=== PATIENT | male | born 1965 | race Asian ===

== ENCOUNTER 2025-01-13 15:01 | Observation (INO) ==
[2025-01-13 15:49] LABS: Hematocrit (blood only) 48.8 % (42.0-52.0); Hemoglobin 16.4 g/dl (14.0-18.0); Immature Granulocytes # (auto) 0.01 K/uL (0.01-0.20); Immature Granulocytes % (auto) 0.2 %; Mean Corpuscular Hemoglobin 29.2 pg (25.0-34.0); Mean Corpuscular Volume 87.0 fL (80.0-100.0); Platelet Count 204 K/uL (130-400); RDW Standard Deviation 39.2 fL (36.4-46.3); Red Blood Count 5.61 M/uL (4.70-6.10); White Blood Count 4.61 K/ul (4.8-10.8)
[2025-01-13 16:35] LABS: Alanine Aminotransferase 26 U/L (7-52); Albumin Globulin Ratio 1.1 (0.9-2); Albumin Level 4.1 gm/dl (3.4-5.0); Alkaline Phosphatase 68 U/L (34-104); Anion Gap 4 (3-11); Bilirubin,Total 0.3 mg/dl (0.2-1.0); Blood Urea Nitrogen 15 mg/dl (6-23); Calcium 8.7 mg/dl (8.6-10.3); Carbon Dioxide 27 mmol/L (21-32); Chloride 103 mmol/L (98-107); Globulin 3.7 gm/dl (2.5-4.0); Glucose 112 mg/dl (70-99(Fasting)); Sodium 134 mmol/L (136-145); Total Protein 7.8 gm/dl (6.0-8.3)
--- NOTE | 2025-01-13 17:26 | Emergency Department Note ---
History of Present Illness General Chief complaint: Skin Problem Stated complaint: ABCESS ON RT ARM, CHECK FOR CLOTS ALL OVER Time Seen by Provider: 01/13/25 17:19 History of Present Illness This is a 59-year-old male that presents to the emergency department accompanied by 2 officers with complaints of "abscess on right arm, infection". Patient notes that 9 days ago following eating some chili he felt some oozing, heat sensation and itchiness to much of the body. He then noted a small sore develop to the right elbow that has progressed since that time now to multiple areas of the body. He denies any history of similar. He has been taking Zyrtec daily. No known drug allergies other than fish containing products. Home Medications Medication Instructions Recorded Confirmed Type cetirizine 10 mg tablet (Zyrtec) 10 mg PO DAILY 01/13/25 01/13/25 History silver sulfadiazine 1 % topical 1 applic topical DAILY 01/13/25 01/13/25 History cream (Silvadene) Allergies Allergy/AdvReac Type Severity Reaction Status Date / Time Fish Containing Products Allergy Unknown ON Verified 01/13/25 18:16 [facility] Past Med/Surg History Problem List (Updated 01/14/25 @ 00:14 by Joel Mcfarlane PA-C) Cellulitis of right elbow (Acute) Medical History (Updated 01/14/25 @ 00:14 by Joel Mcfarlane PA-C) Hypertension Prediabetes Dyslipidemia Surgical History (Updated 01/13/25 @ 18:41 by Parris Mack PA-C) Hx of elbow surgery right elbow in the for fracture repair Social History Smoking Status: Former smoker Tobacco Type: Cigarettes Cigarettes Per Day: 10; Second Hand Exposure: Yes; Do You Dip or Chew Tobacco: No; Hx Alcohol Use: No Hx Substance Use: No Preferred Language: Malian Communication Ability: Effective Bull Wheel Worker Required: No Beliefs That Will Affect Care: None Current Living Situation: Other Current Living Situation Comment: [facility] Feels Safe at Home: Yes Assistive Devices: Glasses Review of Systems A total of 10 systems reviewed and were otherwise negative Physical Exam Vital Signs Vital Signs - 24 hr 01/13/25 15:12 01/13/25 17:33 01/13/25 17:48 Temperature 36.6 C Temperature Source Temporal Artery Scan Pulse Rate 63 60 Pulse Rate [Left Apical] 59 L Respiratory Rate 18 22 Respiratory Effort / Characteristics Non-Labored Spontaneous Respiratory Depth Normal Respiratory Pattern Regular Blood Pressure 141/89 H Blood Pressure [Left Arm] 173/98 H Blood Pressure Mean 106 Blood Pressure Mean [Left Arm] 123 Pulse Oximetry 98 100 Oxygen Delivery Method Room Air Room Air Sepsis Recent Fever Within 48 Hours No Sepsis New/Unexplained Change in Mental Status No Sepsis Action Taken by Nursing No Action Required VITAL SIGNS - Vital signs and nursing notes were reviewed. Stable and afebrile. GENERAL -59-year-old male appearing his stated age who is in no acute distress. Communicates well with provider and answers questions appropriately. SKIN -multiple erythematous regions to the patient's extremities. The largest areas overlying the right elbow region with a large amount of erythema and near the flexor crease of the right elbow there is a dry, scaling skin with several punctate slightly raised erythematous lesions. Similar areas to the upper back centrally and right leg area. HEAD - NC/AT. EYES - Sclera anicteric. NECK - No nuchal rigidity. LUNGS - CTA CARDIAC - RRR EXTREMITIES - No clubbing or peripheral cyanosis. +5/5 strength noted in UE/LE bilaterally. NEUROLOGIC - Cranial nerves II through XII grossly intact. PSYCH -alert, oriented and pleasant on exam Course Administered Medications Acetaminophen (Acetaminophen 500 Mg Tab) 1,000 mg PO TID [facility] Stop: 02/12/25 20:59 Last Admin: 01/14/25 10:33 Dose: 1,000 mg Documented By: Admin: 01/13/25 20:57 Dose: 1,000 mg Documented By: AMANDA Cetirizine HCl (Cetirizine Hcl 10 Mg Tablet) 10 mg PO DAILY MAURI Stop: 02/13/25 04:04 Last Admin: 01/14/25 04:17 Dose: 10 mg Documented By: YEN Ceftriaxone Sodium (Rocephin) 2,000 mg in 50 mls @ 100 mls/hr IV Q24H MAURI Stop: 01/21/25 08:59 Last Infusion: 01/14/25 11:03 Dose: Infused Documented By: Admin: 01/14/25 10:33 Dose: 100 mls/hr Documented By: BRYANT Vancomycin HCl 1,250 mg/ (Sodium Chloride) 275 mls @ 200 mls/hr IV Q12H MAURI Stop: 01/21/25 01:59 Last Infusion: 01/14/25 03:20 Dose: Infused Documented By: Admin: 01/14/25 01:11 Dose: 200 mls/hr Documented By: YEN Lisinopril (Lisinopril 10 Mg Tab) 10 mg PO QAM MAURI Stop: 02/12/25 19:14 Last Admin: 01/14/25 10:33 Dose: 10 mg Documented By: Admin: 01/13/25 20:57 Dose: 10 mg Documented By: AMANDA Zinc Acetate/Diphenhydramine (Diphenhydramine 2%/Zinc 0.1% Cream 28.4gm Tube) 1 appln EXT QID PRN PRN Reason: itchy skin Stop: 02/13/25 04:00 Last Admin: 01/14/25 04:17 Dose: 1 appln Documented By: YEN Discontinued Medications Hydroxyzine HCl (Hydroxyzine Hcl 25 Mg Tab) 25 mg PO NOW STA Stop: 01/13/25 19:00 Last Admin: 01/13/25 19:19 Dose: 25 mg Documented By: AMANDA Ceftriaxone Sodium (Rocephin) 2,000 mg in 50 mls @ 100 mls/hr IV NOW STA Stop: 01/13/25 18:25 Last Infusion: 01/13/25 19:16 Dose: Infused Documented By: Admin: 01/13/25 18:31 Dose: 100 mls/hr Documented By: AMANDA Vancomycin HCl 1,250 mg/ (Sodium Chloride) 525 mls @ 200 mls/hr IV NOW ONE Stop: 01/13/25 20:33 Last Infusion: 01/13/25 22:43 Dose: Infused Documented By: Admin: 01/13/25 19:20 Dose: 200 mls/hr Documented By: AMANDA Ioversol (Optiray 320 100ml) 90 ml IV ONCE ONE Stop: 01/13/25 19:08 Last Admin: 01/13/25 19:08 Dose: 90 ml Documented By: KIMBERLY Medical Decision Making Laboratory Data 01/14/25 06:16 01/14/25 06:16 Lab Results 01/13/25 01/13/25 01/13/25 Range/Units 15:29 17:44 18:34 WBC 4.61 L (4.8-10.8) K/ul RBC 5.61 (4.70-6.10) M/uL Hgb 16.4 (14.0-18.0) g/dl Hct 48.8 (42.0-52.0) % MCV 87.0 (80.0-100.0) fL MCH 29.2 (25.0-34.0) pg MCHC 33.6 (32.0-36.0) g/dL RDW Std Deviation 39.2 (36.4-46.3) fL RDW Coeff of Vesna 12.3 (11.5-14.5) % Plt Count 204 (130-400) K/uL MPV 10.0 (9.4-12.4) fL Immature Gran % (Auto) 0.2 % Neut % (Auto) 36.0 % Lymph % (Auto) 32.1 % Jackson % (Auto) 19.1 % Eos % (Auto) 11.9 % Baso % (Auto) 0.7 % Neut # (Auto) 1.66 (1.40-6.50) K/uL Lymph # (Auto) 1.48 (1.20-3.40) K/uL Jackson # (Auto) 0.88 H (0.11-0.59) K/uL Eos # (Auto) 0.55 H (0.00-0.50) K/uL Baso # (Auto) 0.03 (0.00-0.20) K/uL Immature Gran # (Auto) 0.01 (0.01-0.20) K/uL ESR 21 H (0-20) mm/hr Sodium 134 L (136-145) mmol/L Potassium TNP 4.1 Chloride 103 (98-107) mmol/L Carbon Dioxide 27 (21-32) mmol/L Anion Gap 4 (3-11) BUN 15 (6-23) mg/dl Creatinine 0.77 (0.6-1.4) mg/dl Est Cr Clr Drug Dosing Not Reportable eGFR 103.77 BUN/Creatinine Ratio 19.5 (10-20) Glucose 112 H (70-99(Fasting)) mg/dl Lactate 1.1 (0.4-2.0) mmol/L Calcium 8.7 (8.6-10.3) mg/dl Total Bilirubin 0.3 (0.2-1.0) mg/dl AST TNP 26 ALT 26 (7-52) U/L Alkaline Phosphatase 68 (34-104) U/L C-Reactive Protein < 0.50 (0-0.5) mg/dl Total Protein 7.8 (6.0-8.3) gm/dl Albumin 4.1 (3.4-5.0) gm/dl Globulin 3.7 (2.5-4.0) gm/dl Albumin/Globulin Ratio 1.1 (0.9-2) Procalcitonin < 0.02 (0-0.5) ng/ml Nasal Screen MRSA (PCR) Negative (Negative) MDM Narrative Patient was seen and evaluated as above in room B09. Review was performed of triage nursing notes and vital signs. I did review pertinent previous visits and patient history. After obtaining a thorough history and physical examination the above work up was performed. Patient presents to us today for evaluation of the above complaints. He has a rash overlying certain areas of the extremities with what appears to now be secondary bacterial infection. I suspect this began as more of an allergic dermatitis now with secondary bacterial infection. Options of care were discussed with the patient. IV access was established. Labs were drawn. IV ceftriaxone and IV vancomycin ordered for broad coverage of the suspected cellulitis. no fluctuant areas at this time to suggest abscess. Leukopenia 4.61. No anemia. ESR is mildly elevated at 21. Mild hyponatremia at 134. Patient's lactate and procalcitonin are within normal range. Blood cultures currently pending. At this time I do believe that further evaluation and management in the inpatient setting is warranted. Case discussed with the hospitalist service. Please refer to further documentation regarding his stay. Of note, CRP currently pending at this time. GCS: 15 In the evaluation and treatment of this patient the following differential diagnoses were entertained: Contact dermatitis/allergic dermatitis, cellulitis, abscess, necrotizing fasciitis, among others Impression & Plan Cellulitis of right elbow Discharge Plan Visit Data Chief Complaint: Skin Problem Stated Complaint: ABCESS ON RT ARM, CHECK FOR CLOTS ALL OVER ED Provider: Antonio Kirkpatrick ED Midlevel Provider: Joel Mcfarlane Discharge Problem: Cellulitis of right elbow Patient Disposition: Admitted As Inpatient Condition: Good Discharge Instructions Interventions: ED Discharge Assessment Last Done: 01/13/25 22:01
[2025-01-13] MEDS ORDERED: VANCOMYCIN CONSULT ACTIVE PRN (17:56)
--- NOTE | 2025-01-13 18:18 | History & Physical Report ---
<Statement entered by Issa Watts, - 01/13/25 19:17> I have seen and examined the patient and have discussed the case with the advance practice provider. I have reviewed the advanced practitioner's documentation, and I agree with, and take responsibility for that plan of care. Patient's right elbow significantly inflamed, erythematous, tender. Skin with flaky dermatitis. Question if there is an area of fluctuance. In conversation with LAUREN, question of there is history of possible hardware placement. Patient had reported history of trauma to the elbow. Agree with antibiotic choice CT right elbow to evaluate for possible joint infection/abscess. Pain control Discussed with patient plan to start antihypertensive medication and check glucose. Patient reports had been on blood pressure medication in the past. I spent a total of 18 minutes coordinating, documenting, and providing care for this patient excluding time spent by another provider/QHP. Date of Service January 13, 2025 Assessment & Plan (1) Cellulitis of right elbow: (2) Hypertension: (3) Prediabetes: Plan This is a 59 y/o male with HTN, dyslipidemia, prediabetes, and hx of food allergies, specifically fish, who presents to the ED from [facility] with worsening rash over the last ten days. Over the last 3-4 days, pt has noted erythema, pain, warmth, and swelling in the right elbow area that has gradually worsened. Labs in the ED showed a WBC count of mildly decreased at 4.61, ESR mildly elevated at 21, procalcitonin normal at <0.02. Pt referred for admission to IV antibiotics for presumed secondary infection of initial allergic dermatitis. #Right elbow cellulitis #Allergic dermatitis - Observe in med surg overnight - Continue empiric IV ceftriaxone/vancomycin - Blood cultures, MRSA swab pending - CT right elbow to evaluate for possible abscess, pt reports prior surgery to repair a fracture of the right elbow so unclear if has hardware in the area - Pain control - scheduled acetaminophen, prn Motrin/oxycodone #Hypertension - not currently on therapy, BP in the ED elevated with current systolic >170 - Start lisinopril 10 mg daily and monitor #Prediabetes - A1c in the AM Pt seen and reviewed with collaborating physician, Dr. Watts. Plan of care discussed and as outlined above. C Code status: full code DVT prophylaxis: Haylee Mack PA-C History of Present Illness Chief Complaint: rash Primary Care Provider: [facility] This is a 59 y/o male with HTN, dyslipidemia, prediabetes, and hx of food allergies, specifically fish, who presents to the ED from [facility] with worsening rash over the last ten days. Pt reports that he developed an itchy rash about ten days ago, attributed to eating chili. The rash has worsened despite taking Zyrtec 10 mg daily and using Silvadene cream. He reports the rash has been present on his upper and lower extremities, chest, neck, face. Over the last 3-4 days, he developed pain just above his right elbow with associated redness and swelling. The pain has been keeping him up at night the last couple nights. Over the last two days, the redness seems to be worsening and the skin is the area has started peeling. He denies similar symptoms previously. He reports a history of hypertension for which he was previously on medication, but has not been prescribed anything since being at the [facility]. He cannot recall what he was on previously. Allergies Allergy/AdvReac Type Severity Reaction Status Date / Time Fish Containing Products Allergy Unknown ON Verified 01/13/25 18:16 [facility] Home Medications Medication Instructions Recorded Confirmed Type cetirizine 10 mg tablet (Zyrtec) 10 mg PO DAILY 01/13/25 01/13/25 History silver sulfadiazine 1 % topical 1 applic topical DAILY 01/13/25 01/13/25 History cream (Silvadene) Past Med/Surg History Problem List (Updated 01/13/25 @ 18:57 by Parris Mack PA-C) Cellulitis of right elbow Medical History (Updated 01/13/25 @ 18:57 by Parris Mack PA-C) Hypertension Prediabetes Dyslipidemia Surgical History (Updated 01/13/25 @ 18:41 by Parris Mack PA-C) Hx of elbow surgery right elbow in the 1980s for fracture repair Social History Smoking Status: Current every day smoker Preferred Language: German Feels Safe at Home: Yes Review of Systems Review of Systems: All systems reviewed & are unremarkable except as noted in Subjective Physical Exam Physical Exam: General: awake, alert, NAD HEENT: no scleral icterus, moist oral mucosa Neck: supple, trachea midline Heart: RRR Lungs: CTA bilaterally Abdomen: soft, NT, +BS Skin: patches of erythematous papular rash on neck, bilateral LE, UE; right elbow area with erythema extending to upper forearm and above elbow, area of warmth and tenderness proximal to right elbow, flaking skin in elbow area but no areas of drainage or vesicles Neurologic: no confusion or dysarthria, moving all extremities, no focal de ficits Results & Data Results & Data Vital Signs (Past 12 Hours) Vital Signs Temp Pulse Pulse Resp BP BP Pulse Ox 01/13/25 17:48 60 01/13/25 17:33 59 L 22 173/98 H 100 01/13/25 15:12 36.6 C 63 18 141/89 H 98 O2 Del Method 01/13/25 17:48 01/13/25 17:33 Room Air 01/13/25 15:12 Room Air Laboratory Results 01/13/25 15:29 WBC 4.61 L RBC 5.61 Hgb 16.4 Hct 48.8 MCV 87.0 MCH 29.2 MCHC 33.6 RDW Std Deviation 39.2 RDW Coeff of Vesna 12.3 Plt Count 204 MPV 10.0 Immature Gran % (Auto) 0.2 Neut % (Auto) 36.0 Lymph % (Auto) 32.1 [place] % (Auto) 19.1 Eos % (Auto) 11.9 Baso % (Auto) 0.7 Neut # (Auto) 1.66 Lymph # (Auto) 1.48 [place] # (Auto) 0.88 H Eos # (Auto) 0.55 H Baso # (Auto) 0.03 Immature Gran # (Auto) 0.01 ESR 21 H Sodium 134 L Potassium TNP Chloride 103 Carbon Dioxide 27 Anion Gap 4 BUN 15 Creatinine 0.77 Est Cr Clr Drug Dosing Not Reportable eGFR 103.77 BUN/Creatinine Ratio 19.5 Glucose 112 H Calcium 8.7 Total Bilirubin 0.3 AST TNP ALT 26 Alkaline Phosphatase 68 Total Protein 7.8 Albumin 4.1 Globulin 3.7 Albumin/Globulin Ratio 1.1 (2) Hypertension Hypertension type: unspecified Qualified Code(s): I10 - Essential (primary) hypertension
[2025-01-13] MEDS: cefTRIAXone SODIUM 2,000 MG/50 ML BAG IV STA (18:31)
[2025-01-13 18:49] LABS: Potassium 4.1 mmol/L (3.5-5.1)
[2025-01-13] MEDS ORDERED: IBUPROFEN 600 MG TAB PO PRN (19:00)
[2025-01-13] MEDS: OPTIRAY 320 100ml IV ONE (19:08)
[2025-01-13] MEDS: VANCOMYCIN HCL 1,250 MG in SODIUM CHLORIDE 0.9% 500 ML IV ONE (19:20)
--- NOTE | 2025-01-13 20:25 | CT Scan Report ---
CT right elbow without and with intravenous contrast History: Infection/abscess. Questionable hardware. Comparison: None Technique: Routine axial CT images with coronal and sagittal reconstructions without and with contrast of the right elbow were obtained and reviewed. Dose reduction techniques were achieved by using automatic exposure control and/or adjustment of mA and/or kV according to patient size and/or use of iterative reconstruction technique. Findings: Practical Nursing Teacher film demonstrates no acute abnormality. Soft tissue windows demonstrate reticular densities of the subcutaneous soft tissues along the medial para-articular region. Focal area of dermal thickening is noted. No appreciated soft tissue gas. There are two 1 to 2 mm what appear to be calcifications within the subcutaneous soft tissues at this level. No appreciated fluid collection. Para-articular musculature demonstrates no appreciated abnormality. Mild fascial planes appear to be intact. Systemic and venous vasculature are within normal limits. No joint effusion. Bone windows demonstrate no destructive or osseous joint process. Mild productive osteophytes are noted. Very small ossification along the dorsal medial aspect of the medial joint at the level of the collateral ligament. This may be secondary to prior trauma. Impression: Subcutaneous edematous changes of the medial periarticular soft tissues with punctate calcifications and focal area of questionable dermal induration. Otherwise no discrete radiopaque foreign body or fluid collection. No joint effusion or para-articular musculature abnormality. No appreciated osseous abnormality. Cellulitis is not excluded. MR may be of benefit. Recommend follow-up exam if clinical suspicion or symptoms persist despite therapy. Electronically signed by Eugenio Mendez 01-13-2025 8:25 PM
[2025-01-13] MEDS: ACETAMINOPHEN 500 MG TAB PO SCH (20:57)
[2025-01-14] MEDS: VANCOMYCIN HCL 1,250 MG in SODIUM CHLORIDE 0.9% 250 ML IV SCH (01:11)
[2025-01-14] MEDS: CETIRIZINE HCL 10 MG TABLET PO SCH (04:17)
[2025-01-14] MEDS: diphenhydrAMINE 2%/ZINC 0.1% CREAM 28.4GM TUBE EXT PRN (04:17)
[2025-01-14 06:42] LABS: Hematocrit (blood only) 44.6 % (42.0-52.0); Hemoglobin 15.7 g/dl (14.0-18.0); Immature Granulocytes # (auto) 0.01 K/uL (0.01-0.20); Immature Granulocytes % (auto) 0.2 %; Mean Corpuscular Hemoglobin 30.9 pg (25.0-34.0); Mean Corpuscular Volume 87.8 fL (80.0-100.0); Platelet Count 194 K/uL (130-400); RDW Standard Deviation 39.4 fL (36.4-46.3); Red Blood Count 5.08 M/uL (4.70-6.10); White Blood Count 5.90 K/ul (4.8-10.8)
[2025-01-14 07:01] LABS: Anion Gap 6.0 (3-11); Blood Urea Nitrogen 14.0 mg/dl (6-23); Calcium 8.1 mg/dl (8.6-10.3); Carbon Dioxide 26.0 mmol/L (21-32); Chloride 107.0 mmol/L (98-107); Creatinine Clr Calc Pharmacy 98.4 ml/min; Glucose 108.0 mg/dl (70-99(Fasting)); Potassium 3.8 mmol/L (3.5-5.1); Sodium 139.0 mmol/L (136-145)
[2025-01-14 07:49] LABS: Hemoglobin A1C 6.6 % (4.5-5.6)
[2025-01-14] MEDS ORDERED: CETIRIZINE HCL 10 MG TABLET PO SCH (09:00)
[2025-01-14] MEDS: cefTRIAXone SODIUM 2,000 MG/50 ML BAG IV SCH (10:33)
--- NOTE | 2025-01-14 10:40 | Pharmacy Report ---
Pharmacy PK ABX Note - Date of Service January 14, 2025 - Assessment and Plan Assessment 59 year old M receiving vancomycin and ceftriaxone for treatment of right elbow cellulitis. Patient presents from [facility] with worsening rash over the last 10 days with last 3-4 days increase of erythema, pain, warmth, and swelling to the right elbow. * Pertinent microbiologic data includes: Blood cultures x 2 from 01/13 are pending, MRSA nasal swab is negative * Renal function is stable at baseline (SCr 0.71mg/dL), wbc and procal normal, and afebrile since admit Day # 2 of antimicrobial therapy. Plan Vancomycin * Loading dose: 1250 mg IV x 1 * Maintenance dose: 1250 mg IV every 12 hours * Regimen is predicted to achieve target AUC/GUILLERMO of 400-600 mg/L.hr * Random level ordered for: 01/15 at 1200 Pharmacy will continue to follow and will adjust dose/frequency as necessary. Thank you. Pharmacy has transitioned to AUC monitoring for vancomycin. AUC/GUILLERMO is the preferred PK/PD target and is associated with decreased risk of nephrotoxicity compared to traditional trough targets.
--- NOTE | 2025-01-14 15:55 | Hospitalist Progress Note ---
Date of Service January 14, 2025 Assessment & Plan (1) Cellulitis of right elbow: (2) Hypertension: (3) Diabetes mellitus type 2, noninsulin dependent: Plan Patient has significant improvement with current antibiotics Continue another 24 hours, then anticipate transitioning to oral antibiotics, will discontinue vancomycin at that time Patient's hemoglobin A1c consistent with diabetes, would recommend starting metformin at discharge Blood pressure significantly improved with lisinopril, continue Anticipate discharge tomorrow Admission and Anticipated Discharge Date Admission Date: January 13, 2025 Subjective Patient reports significant improvement in the pain and swelling of his right elbow Physical Exam Physical Exam: Constitutional: Alert, nontoxic HEENT: Mucous membranes moist. Lungs: Clear to auscultation, decreased, no wheezes rales or rhonchi CV: S1-S2, regular Abdomen: Soft, nontender, nondistended Extremities: Right elbow significantly less swollen, less tender, less red, flaking skin significantly improved, overall improved from yesterday Neuro: No focal deficits Psych: Cooperative, normal mood Results & Data Results & Data Vital Signs (Past 12 Hours) Vital Signs Temp Pulse Resp BP Pulse Ox O2 Del Method 01/14/25 15:45 36.6 C 63 18 110/68 98 Room Air 01/14/25 07:47 36.6 C 56 L 18 146/80 H 98 Room Air Diagnostic Findings Reviewed imaging, laboratory and diagnostic studies. Pertinent findings as below. Reviewed CT of elbow no abscess WBCs 5.9 Electrolytes stable Hemoglobin A1c 6.6% MRSA nasal screen negative (2) Hypertension Hypertension type: unspecified Qualified Code(s): I10 - Essential (primary) hypertension
[2025-01-15 07:32] LABS: Creatinine Clr Calc Pharmacy 99.8 ml/min
--- NOTE | 2025-01-15 08:44 | Discharge Summary ---
Discharge Summary Date of Service January 15, 2025 Principal Dx & Hospital Course #1 = Principal Diagnosis (1) Cellulitis of right elbow: (2) Hypertension: (3) Diabetes mellitus type 2, noninsulin dependent: (4) Allergic dermatitis: Plan Patient is a 51-year-old gentleman who presented to the emergency room with a severe dermatitis and concerns for cellulitis of the right elbow. Evaluation in the emergency room was consistent with cellulitis. Patient was admitted to the [facility] unit. Was started on IV antibiotics. CT of the elbow did confirm cellulitis but no definitive abscess or joint infection. With the IV antibi otics patient's cellulitis significantly improved. He had no significant fevers. His WBCs were within normal range. He also noted to be hypertensive and some mild hyperglycemia. Patient reports he has have a known history of hypertension and prediabetes. He was started on lisinopril which was effective. Hemoglobin A1c was 6.6%. Would recommend starting some metformin. On the day of discharge again significant improvement of the cellulitis of the elbow. He can be transition to oral antibiotics and discharged back to [facility]. Staff at the [facility] was updated to the plan of care. Notes For Next Care Provider Monitor glucose minimum 3-4 times per week Monitor blood pressure, may need titration of lisinopril Medication Changes From Visit Augmentin x 7 more days Lisinopril Metformin Admission HPI Per Admitting Provider This is a 59 y/o male with HTN, dyslipidemia, prediabetes, and hx of food allergies, specifically fish, who presents to the ED from [facility] with worsening rash over the last ten days. Pt reports that he developed an itchy rash about ten days ago, attributed to eating chili. The rash has worsened despite taking Zyrtec 10 mg daily and using Silvadene cream. He reports the rash has been present on his upper and lower extremities, chest, neck, face. Over the last 3-4 days, he developed pain just above his right elbow with associated redness and swelling. The pain has been keeping him up at night the last couple nights. Over the last two days, the redness seems to be worsening and the skin is the area has started peeling. He denies similar symptoms previously. He reports a history of hypertension for which he was previously on medication, but has not been prescribed anything since being at the [facility]. He cannot recall what he was on previously. Admission Exam Per Admitting Provider See H&P Discharge Exam Constitutional: Alert, nontoxic HEENT: Mucous membranes moist. Lungs: Clear to auscultation, decreased, no wheezes rales or rhonchi CV: S1-S2, regular Abdomen: Soft, nontender, nondistended Extremities: No significant edema, right elbow swelling, erythema, tenderness, dermatitis significantly improved. Derm: Allergic dermatitis less inflamed, healing Neuro: No focal deficits Psych: Cooperative, normal mood Updated Medication List Medication Instructions Recorded Confirmed Type cetirizine 10 mg tablet (Zyrtec) 10 mg PO DAILY 01/13/25 01/13/25 History silver sulfadiazine 1 % topical 1 applic topical DAILY 01/13/25 01/13/25 History cream (Silvadene) acetaminophen 500 mg tablet 1,000 mg (2 x 500 mg) PO TID PRN 01/15/25 Rx (Tylenol Extra Strength) pain #60 tabs amoxicillin 875 mg-potassium 1 tab PO BID #14 tabs 01/15/25 Rx clavulanate 125 mg tablet diphenhydramine-zinc acetate 2 1 applic EXT QID PRN itching #35 01/15/25 Rx %-0.1 % topical cream (Anti-Itch grams (diphenhydramine) with Zinc) lisinopril 10 mg tablet 10 mg PO DAILY #30 tabs 01/15/25 Rx lisinopril 10 mg tablet 10 mg PO QAM #30 tabs 01/15/25 Rx metformin 500 mg tablet 500 mg PO BID #60 tabs 01/15/25 Rx Hospital Stay Data Consultations 01/13/25 18:00 ED Decision to Admit Stat Diagnostic Imagining Performed 01/13/25 19:03 CT elbow RT wo/w con Urgent Reviewed imaging, laboratory and diagnostic studies. Pertinent findings as below. WBCs 5.9 Hemoglobin 15.7 Electrolytes within normal range Creatinine 0.70 Hemoglobin A1c 6.6% Nasal MRSA screen negative CT of the elbow showed subcutaneous edematous changes but no discrete foreign body or fluid collection, no joint effusion, no osseous abnormalities Pending Results Patient Have Any Pending Studies at Discharge: No Discharge Instructions Given to Patient (Per Discharging Provider) Complete course of antibiotics Have your sugars checked daily Total Time Total Time Spent Total Time Spent (In Minutes): 25
[2025-01-15] MEDS ORDERED: VANCOMYCIN LEVEL ONE (12:00)
== END 2025-01-15 13:40 ==
LOC: 2W 15:01 → ED 15:01 → 2W 22:01